=== PATIENT | male | born 1995 | race American Indian/Alaskan Native ===

== ENCOUNTER 2017-07-04 20:19 | Emergency (ER) | payer SELFPAY ==
[2017-07-04 21:08] LABS: Basophils % (Auto) 0.3 % (0.0-1.8); Hematocrit 45.8 % (35.5-45.6); Hemoglobin 15.2 gm/dl (11.8-15.2); Lymphocytes # (Auto) 0.8 K/mm3 (1.2-5.4); Lymphocytes % (Auto) 7.9 % (13.4-35.0); Mean Corpuscular HGB Conc 33 % (32-34); Mean Corpuscular Hemoglobin 32 pg (28-32); Mean Corpuscular Volume 95 fl (84-94); Monocytes # (Auto) 0.4 K/mm3 (0.0-0.8); Platelet Count 159 K/mm3 (140-440); Red Blood Count 4.83 M/mm3 (3.65-5.03); Red Cell Distribution Width 13.7 % (13.2-15.2)
[2017-07-04 21:30] LABS: Alanine Aminotransferase 16 units/L (7-56); Albumin 4.9 g/dL (3.9-5); BUN/Creatinine Ratio 14; Blood Urea Nitrogen 10 mg/dL (9-20); Calcium 9.6 mg/dL (8.4-10.2); Hemolysis Index 20
[2017-07-05] MEDS ORDERED: NACL 0.9% 1000 ML 1,000 ML IV ONE (04:18)
[2017-07-05] MEDS ORDERED: PEPCID IV ONE (04:18)
[2017-07-05] MEDS ORDERED: ZOFRAN IV ONE (04:18)
[2017-07-05] MEDS ORDERED: BENTYL IM ONE (04:18)
[2017-07-05] MEDS ORDERED: MORPHINE IV ONE (04:36)
--- NOTE | 2017-07-05 04:38 | Emergency Department Report ---
ED N/V/D HPI - General Chief complaint: Nausea/Vomiting/Diarrhea Stated complaint: NAUSEA/VOMITTING/DIARHEA Time Seen by Provider: 07/05/17 04:15 Source: patient Mode of arrival: Ambulatory Limitations: No Limitations - History of Present Illness Initial comments: 21-year-old male with a past medical history asthma and no surgical history presents to the hospital for nausea, vomiting, diarrhea and by mouth intolerance the past 3 days. Patient complains of generalized abdominal pain described as a "nervous feeling". Patient also has chest and throat pain described as burning with vomiting episodes. As per triage patient initially rated a 10/10 in intensity Patient denies fever, hematemesis, hematochezia, or melena. Also denies sick contacts, recent travel, antibiotic use. - Related Data Previous Rx's Medication Instructions Recorded Last Taken Type HYDROcodone/APAP 5-325 [[place] 1 each PO Q6HR PRN #20 tablet 07/04/14 Unknown Rx 5-325 mg TAB] Promethazine [Phenergan] 25 mg PO Q6H PRN #20 tablet 07/04/14 Unknown Rx Ranitidine HCl [Ranitidine] 150 mg PO Q12H #60 tablet 07/04/14 Unknown Rx HYDROcodone/APAP 10-325 [[place] 1 each PO Q6HR PRN #12 tablet 10/17/14 Unknown Rx 10/325] Promethazine [Phenergan] 25 mg PO Q6H PRN #12 tablet 10/17/14 Unknown Rx Ranitidine HCl [Ranitidine] 150 mg PO Q12H #60 tablet 10/17/14 Unknown Rx Loperamide [Imodium] 2 mg PO Q2HR PRN #15 capsule 07/05/17 Unknown Rx Omeprazole Magnesium [PriLOSEC Otc] 20 mg PO BID #60 tab 07/05/17 Unknown Rx Ondansetron [Zofran Odt] 4 mg PO Q8HR PRN #20 tab.rapdis 07/05/17 Unknown Rx traMADol [Ultram 50 MG tab] 50 mg PO Q6HR PRN #20 tablet 07/05/17 Unknown Rx Allergies Allergy/AdvReac Type Severity Reaction Status Date / Time No Known Allergies Allergy Verified 10/17/14 11:21 ED Review of Systems ROS: Stated complaint: NAUSEA/VOMITTING/DIARHEA Other details as noted in HPI Comment: All other systems reviewed and negative Other: Constitutional: No fevers chills. Patient does complain of sweating episodes after vomiting Eyes: No eye pain visual changes or discharge ENT: No ear pain or throat pain Neck: Denies pain Respiratory: Denies cough wheezing shortness of breath Cardiovascular: Denies chest pain, palpitations, syncope GI: As per HPI : Denies dysuria Musculoskeletal: Denies back pain, joint swelling Skin: Denies rash, lesions, erythema Neurologic: Denies headache, numbness, weakness Psychiatric: Denies suicidal ideation, hallucinations ED Past Medical Hx - Past Medical History Hx Asthma: Yes - Surgical History Past Surgical History?: No - Social History Smoking Status: Current Every Day Smoker Substance Use Type: None - Medications Home Medications: Home Medications Medication Instructions Recorded Confirmed Last Taken Type HYDROcodone/APAP 5-325 [[place] 1 each PO Q6HR PRN #20 tablet 07/04/14 Unknown Rx 5-325 mg TAB] Promethazine [Phenergan] 25 mg PO Q6H PRN #20 tablet 07/04/14 Unknown Rx Ranitidine HCl [Ranitidine] 150 mg PO Q12H #60 tablet 07/04/14 Unknown Rx HYDROcodone/APAP 10-325 [[place] 1 each PO Q6HR PRN #12 tablet 10/17/14 Unknown Rx 10/325] Promethazine [Phenergan] 25 mg PO Q6H PRN #12 tablet 10/17/14 Unknown Rx Ranitidine HCl [Ranitidine] 150 mg PO Q12H #60 tablet 10/17/14 Unknown Rx Loperamide [Imodium] 2 mg PO Q2HR PRN #15 capsule 07/05/17 Unknown Rx Omeprazole Magnesium [PriLOSEC Otc] 20 mg PO BID #60 tab 07/05/17 Unknown Rx Ondansetron [Zofran Odt] 4 mg PO Q8HR PRN #20 tab.rapdis 07/05/17 Unknown Rx traMADol [Ultram 50 MG tab] 50 mg PO Q6HR PRN #20 tablet 07/05/17 Unknown Rx ED Physical Exam - General Limitations: No Limitations - Other Other exam information: General: No limitations, patient is alert in no acute distress Head exam: Atraumatic, normocephalic Eyes exam: Normal appearance, nonicteric sclerae ENT: Moist mucous membrane, normal oropharynx Neck exam: Normal inspection, full range of motion, no meningismus nontender Respiratory exam: Clear to auscultation bilateral, no wheezes, rales, crackles Cardiovascular: Normal rate and rhythm Abdomen: Soft, nondistended, right upper quadrant, epigastric, left upper quadrant tenderness to palpation, with normal bowel sounds, no rebound, or guarding Extremity: Full range of motion normal inspection no deformity Back: Normal Inspection, full range of motion, no tenderness Neurologic: Alert, oriented x3, cranial nerves intact, no motor or sensory deficit Psychiatric: normal affect, normal mood Skin: Warm, dry, intact ED Course Vital Signs 07/04/17 07/05/17 07/05/17 20:53 04:17 04:20 Temperature 97.2 F L 98.3 F Pulse Rate 59 L 80 Respiratory 18 16 Rate Blood Pressure 129/69 Blood Pressure 136/68 [Right] O2 Sat by Pulse 100 100 97 Oximetry 07/05/17 07/05/17 07/05/17 04:30 04:45 04:58 Temperature Pulse Rate Respiratory 16 Rate Blood Pressure 117/54 117/54 Blood Pressure [Right] O2 Sat by Pulse 100 100 Oximetry ED Medical Decision Making - Lab Data Result diagrams: 07/04/17 20:58 07/04/17 20:58 Lab Results 07/04/17 07/04/17 Range/Units 20:58 20:58 WBC 9.9 (4.5-11.0) K/mm3 RBC 4.83 (3.65-5.03) M/mm3 Hgb 15.2 (11.8-15.2) gm/dl Hct 45.8 H (35.5-45.6) % MCV 95 H (84-94) fl MCH 32 (28-32) pg MCHC 33 (32-34) % RDW 13.7 (13.2-15.2) % Plt Count 159 (140-440) K/mm3 Lymph % (Auto) 7.9 L (13.4-35.0) % [place] % (Auto) 4.0 (0.0-7.3) % Eos % (Auto) 0.0 (0.0-4.3) % Baso % (Auto) 0.3 (0.0-1.8) % Lymph # 0.8 L (1.2-5.4) K/mm3 [place] # 0.4 (0.0-0.8) K/mm3 Eos # 0.0 (0.0-0.4) K/mm3 Baso # 0.0 (0.0-0.1) K/mm3 Seg Neutrophils % 87.8 H (40.0-70.0) % Seg Neutrophils # 8.7 H (1.8-7.7) K/mm3 Sodium 138 (137-145) mmol/L Potassium 3.7 (3.6-5.0) mmol/L Chloride 102.6 (98-107) mmol/L Carbon Dioxide 21 L (22-30) mmol/L Anion Gap 18 mmol/L BUN 10 (9-20) mg/dL Creatinine 0.7 L (0.8-1.5) mg/dL Estimated GFR > 60 ml/min BUN/Creatinine Ratio 14 % Glucose 145 H (75-100) mg/dL Calcium 9.6 (8.4-10.2) mg/dL Total Bilirubin 0.80 (0.1-1.2) mg/dL AST 18 (5-40) units/L ALT 16 (7-56) units/L Alkaline Phosphatase 53 (35-129) units/L Total Protein 7.2 (6.3-8.2) g/dL Albumin 4.9 (3.9-5) g/dL Albumin/Globulin Ratio 2.1 % - Medical Decision Making Patient received normal saline, morphine, Bentyl, and Zofran with improvement in symptoms. Will be treated symptomatically for gastroenteritis - Differential Diagnosis gastroenteritis, pancreatitis, hepatitis, appendicitis, cholecystitis Critical Care Time: No Critical care attestation.: If time is entered above; I have spent that time in minutes in the direct care of this critically ill patient, excluding procedure time. ED Disposition Clinical Impression: Gastroenteritis Disposition: DC-01 TO HOME OR SELFCARE Is pt being admited?: No Does the pt Need Aspirin: No Condition: Stable Instructions: Gastroenteritis (ED) Additional Instructions: Take the medication as prescribed. Follow-up with the doctor or clinic provided. Return if symptoms worsen as indicated by your discharge instructions. Prescriptions: Loperamide [Imodium] 2 mg PO Q2HR PRN #15 capsule PRN Reason: Diarrhea Omeprazole Magnesium [PriLOSEC Otc] 20 mg PO BID #60 tab Ondansetron [Zofran Odt] 4 mg PO Q8HR PRN #20 tab.rapdis PRN Reason: Nausea And Vomiting traMADol [Ultram 50 MG tab] 50 mg PO Q6HR PRN #20 tablet PRN Reason: Pain Referrals: PRIMARY CARE, [Primary Care Provider] - 3-5 Days [facility] [Provider Group] - 3-5 Days KARON CASTELLANOS MD [Staff Physician] - 3-5 Days Time of Disposition: 06:30
[2017-07-05 06:09] LABS: Bilirubin,Urine NEG (Negative); Blood,Urine NEG (Negative); Color,Urine Yellow (Yellow); Mucus,Urine 3+ /HPF; Nitrite,Urine NEG (Negative); Urobilinogen,Urine < 2.0 mg/dL (<2.0)
[2017-07-05 06:23] VITALS: BP 105/46
== END 2017-07-05 06:32 | disposition home or self-care (01) ==
LOC: ED 20:19
DX: K52.9 Noninfective gastroenteritis and colitis, unspecified (principal); F17.200 Nicotine dependence, unspecified, uncomplicated; J45.909 Unspecified asthma, uncomplicated
CPT/HCPCS: 36415; 80053; 81001; 85025; 96361; 96372; 96374; 96375; 99283; J0500; J2270; J2405; J7030

== ENCOUNTER 2020-07-13 14:15 | Emergency (ER) | payer SELFPAY ==
[2020-07-13 14:27] VITALS: BP 136/75
[2020-07-13] MEDS ORDERED: MORPHINE 4 MG/1 ML INJ IV ONE (15:04)
[2020-07-13] MEDS ORDERED: ONDANSETRON 4 MG/2 ML INJ IV ONE (15:04)
[2020-07-13] MEDS ORDERED: SODIUM CHLORIDE 0.9% 1000 ML 1,000 ML IV ONE (15:05)
[2020-07-13 15:16] LABS: Alanine Aminotransferase 17 units/L (7-56); Albumin 4.7 g/dL (3.9-5); BUN/Creatinine Ratio 13; Blood Urea Nitrogen 12 mg/dL (9-20); Calcium 9.4 mg/dL (8.4-10.2); Hemolysis Index 10
[2020-07-13] MEDS ORDERED: diphenhydrAMINE 50 MG/ML VIAL IV ONE (15:16)
[2020-07-13] MEDS ORDERED: METOCLOPRAMIDE 10 MG/2 ML INJ IV ONE (15:16)
[2020-07-13 15:17] LABS: Basophils % (Auto) 0.4 % (0.0-1.8); Eosinophils % (Auto) 0.1 % (0.0-4.3); Hematocrit 45.7 % (35.5-45.6); Hemoglobin 15.1 gm/dl (11.8-15.2); Lymphocytes # (Auto) 1.2 K/mm3 (1.2-5.4); Lymphocytes % (Auto) 16.1 % (13.4-35.0); Mean Corpuscular HGB Conc 33 % (32-34); Mean Corpuscular Volume 96 fl (84-94); Monocytes # (Auto) 0.3 K/mm3 (0.0-0.8); Platelet Count 181 K/mm3 (140-440); Red Blood Count 4.73 M/mm3 (3.65-5.03); Red Cell Distribution Width 13.5 % (13.2-15.2)
--- NOTE | 2020-07-13 16:13 | Cat Scan Report ---
CT ABDOMEN AND PELVIS WITH CONTRAST HISTORY: MAIN. Acute right lower quadrant abdominal pain COMPARISON: CT abdomen/pelvis from 07/04/2014 TECHNIQUE: CT images of the abdomen and pelvis were obtained following administration of intravenous contrast. All CT scans at this location are performed using CT dose reduction for ALARA by means of automated exposure control. CONTRAST: 100 ml of intravenous contrast administered. FINDINGS: Lungs/bones: Lung bases are clear. No acute osseous abnormality identified. Abdomen/pelvis: The liver, gallbladder, spleen, pancreas, adrenals, kidneys, and proximal GI tract a ppear unremarkable. The urinary bladder and prostate are normal with no significant pelvic free fluid. No acute colonic a bnormality identified. There is questionable wall thickening circumferentially along the terminal ileum. The appendix is not well seen. The exam is also difficult because of generalized lack of intra-abdominal fat; however, t here appear to be some lymph nodes in the deep pelvic mesentery and prominent blood vessels. No bowel obstruction or abscess formation. IMPRESSION: 1. Nonspecific inflammatory-appearing changes in the distal small bowel. Crohn's would be in the diff erential. The appendix is not visualized on this exam. Signer Name: Jack Gallardo MD Signed: 07/13/2020 4:08 PM Workstation Name: [id number]
--- NOTE | 2020-07-13 16:47 | Emergency Department Report ---
ED General Adult HPI - General Chief complaint: Syncope Stated complaint: PASS OUT Time Seen by Provider: 07/13/20 14:33 Source: patient Mode of arrival: Stretcher Limitations: No Limitations - History of Present Illness Initial comments: Patient presents to the emergency department from labor and delivery for syncopal episode. Patient was with a significant other who was having a baby when he passed out. Patient states he has a history of passing out. Patient denies chest pain but does complain of nausea and vomiting with abdominal pain. He describes the pain is sharp in nature and denies any radiation. -: Sudden Location: abdomen Radiation: non-radiation Severity scale (0 -10): 8 Quality: sharp Consistency: constant Improves with: none Worsens with: none Associated Symptoms: denies other symptoms Treatments Prior to Arrival: none - Related Data Previous Rx's Medication Instructions Recorded Last Taken Type HYDROcodone/APAP 5-325 [[place] 1 each PO Q6HR PRN #20 tablet 07/04/14 Unknown Rx 5-325 mg TAB] Promethazine [Phenergan] 25 mg PO Q6H PRN #20 tablet 07/04/14 Unknown Rx raNITIdine HCL [Ranitidine] 150 mg PO Q12H #60 tablet 07/04/14 Unknown Rx HYDROcodone/APAP 10-325 [[place] 1 each PO Q6HR PRN #12 tablet 10/17/14 Unknown Rx 10/325] Promethazine [Phenergan] 25 mg PO Q6H PRN #12 tablet 10/17/14 Unknown Rx raNITIdine HCL [Ranitidine] 150 mg PO Q12H #60 tablet 10/17/14 Unknown Rx Loperamide [Imodium] 2 mg PO Q2HR PRN #15 capsule 07/05/17 Unknown Rx Omeprazole Magnesium [PriLOSEC Otc] 20 mg PO BID #60 tab 07/05/17 Unknown Rx Ondansetron [Zofran Odt] 4 mg PO Q8HR PRN #20 tab.rapdis 07/05/17 Unknown Rx traMADoL [Ultram 50 MG tab] 50 mg PO Q6HR PRN #20 tablet 07/05/17 Unknown Rx Dicyclomine [Bentyl] 10 mg PO QID PRN #20 capsule 07/13/20 Unknown Rx Promethazine [Phenergan TAB] 25 mg PO Q6HR PRN #20 tab 07/13/20 Unknown Rx Allergies Allergy/AdvReac Type Severity Reaction Status Date / Time ondansetron [From Zofran] AdvReac Vomiting Verified 07/13/20 15:16 ED Review of Systems ROS: Stated complaint: PASS OUT Other details as noted in HPI Constitutional: denies: chills, fever Eyes: denies: eye pain, eye discharge, vision change ENT: denies: ear pain, throat pain Respiratory: denies: cough, shortness of breath, wheezing Cardiovascular: denies: chest pain, palpitations Endocrine: no symptoms reported Gastrointestinal: abdominal pain, nausea, vomiting. denies: diarrhea Genitourinary: denies: urgency, dysuria Musculoskeletal: denies: back pain, joint swelling, arthralgia Skin: denies: rash, lesions Neurological: denies: headache, weakness, paresthesias Psychiatric: denies: anxiety, depression Hematological/Lymphatic: denies: easy bleeding, easy bruising ED Past Medical Hx - Past Medical History Previous Medical History?: Yes Hx Asthma: Yes - Surgical History Past Surgical History?: No - Social History Smoking Status: Never Smoker Substance Use Type: None - Medications Home Medications: Home Medications Medication Instructions Recorded Confirmed Last Taken Type HYDROcodone/APAP 5-325 [[place] 1 each PO Q6HR PRN #20 tablet 07/04/14 Unknown Rx 5-325 mg TAB] Promethazine [Phenergan] 25 mg PO Q6H PRN #20 tablet 07/04/14 Unknown Rx raNITIdine HCL [Ranitidine] 150 mg PO Q12H #60 tablet 07/04/14 Unknown Rx HYDROcodone/APAP 10-325 [[place] 1 each PO Q6HR PRN #12 tablet 10/17/14 Unknown Rx 10/325] Promethazine [Phenergan] 25 mg PO Q6H PRN #12 tablet 10/17/14 Unknown Rx raNITIdine HCL [Ranitidine] 150 mg PO Q12H #60 tablet 10/17/14 Unknown Rx Loperamide [Imodium] 2 mg PO Q2HR PRN #15 capsule 07/05/17 Unknown Rx Omeprazole Magnesium [PriLOSEC Otc] 20 mg PO BID #60 tab 07/05/17 Unknown Rx Ondansetron [Zofran Odt] 4 mg PO Q8HR PRN #20 tab.rapdis 07/05/17 Unknown Rx traMADoL [Ultram 50 MG tab] 50 mg PO Q6HR PRN #20 tablet 07/05/17 Unknown Rx Dicyclomine [Bentyl] 10 mg PO QID PRN #20 capsule 07/13/20 Unknown Rx Promethazine [Phenergan TAB] 25 mg PO Q6HR PRN #20 tab 07/13/20 Unknown Rx ED Physical Exam - General Limitations: No Limitations General appearance: alert, in no apparent distress - Head Head exam: Present: atraumatic, normocephalic - Eye Eye exam: Present: normal appearance - ENT ENT exam: Present: mucous membranes moist - Neck Neck exam: Present: normal inspection - Respiratory Respiratory exam: Present: normal lung sounds bilaterally. Absent: respiratory distress - Cardiovascular Cardiovascular Exam: Present: regular rate, normal rhythm. Absent: systolic murmur, diastolic murmur, rubs, gallop - GI/Abdominal GI/Abdominal exam: Present: soft, tenderness (Right lower quadrant initially; repeat abdominal examination at 3:30 PM the patient has no tenderness to palpation of the right lower quadrant), normal bowel sounds. Absent: distended - Rectal Rectal exam: Present: deferred - Extremities Exam Extremities exam: Present: normal inspection - Back Exam Back exam: Present: normal inspection - Neurological Exam Neurological exam: Present: alert, oriented X3, CN II-XII intact. Absent: motor sensory deficit - Psychiatric Psychiatric exam: Present: normal affect, normal mood - Skin Skin exam: Present: warm, dry, intact, normal color. Absent: rash ED Course Vital Signs 07/13/20 14:26 Temperature 97.6 F Pulse Rate 69 Respiratory 16 Rate Blood Pressure 136/75 Blood Pressure 136/75 [Right] O2 Sat by Pulse 100 Oximetry ED Medical Decision Making - Lab Data Result diagrams: 07/13/20 14:36 07/13/20 14:36 Lab Results 07/13/20 07/13/20 07/13/20 Range/Units 14:20 14:36 14:36 WBC 7.6 (4.5-11.0) K/mm3 RBC 4.73 (3.65-5.03) M/mm3 Hgb 15.1 (11.8-15.2) gm/dl Hct 45.7 H (35.5-45.6) % MCV 96 H (84-94) fl MCH 32 (28-32) pg MCHC 33 (32-34) % RDW 13.5 (13.2-15.2) % Plt Count 181 (140-440) K/mm3 Lymph % (Auto) 16.1 (13.4-35.0) % [place] % (Auto) 4.0 (0.0-7.3) % Eos % (Auto) 0.1 (0.0-4.3) % Baso % (Auto) 0.4 (0.0-1.8) % Lymph # (Auto) 1.2 (1.2-5.4) K/mm3 [place] # (Auto) 0.3 (0.0-0.8) K/mm3 Eos # (Auto) 0.0 (0.0-0.4) K/mm3 Baso # (Auto) 0.0 (0.0-0.1) K/mm3 Seg Neutrophils % 79.4 H (40.0-70.0) % Seg Neutrophils # 6.0 (1.8-7.7) K/mm3 Sodium 138 (137-145) mmol/L Potassium 3.5 L (3.6-5.0) mmol/L Chloride 100.9 (98-107) mmol/L Carbon Dioxide 25 (22-30) mmol/L Anion Gap 16 mmol/L BUN 12 (9-20) mg/dL Creatinine 0.9 (0.8-1.3) mg/dL Estimated GFR > 60 ml/min BUN/Creatinine Ratio 13 % Glucose 153 H (75-100) mg/dL POC Glucose 144 H (70-105) mg/dL Calcium 9.4 (8.4-10.2) mg/dL Total Bilirubin 0.60 (0.1-1.2) mg/dL AST 17 (5-40) units/L ALT 17 (7-56) units/L Alkaline Phosphatase 49 (35-129) units/L Total Protein 6.8 (6.3-8.2) g/dL Albumin 4.7 (3.9-5) g/dL Albumin/Globulin Ratio 2.2 % Lipase (13-60) units/L 07/13/20 Range/Units 15:07 WBC (4.5-11.0) K/mm3 RBC (3.65-5.03) M/mm3 Hgb (11.8-15.2) gm/dl Hct (35.5-45.6) % MCV (84-94) fl MCH (28-32) pg MCHC (32-34) % RDW (13.2-15.2) % Plt Count (140-440) K/mm3 Lymph % (Auto) (13.4-35.0) % [place] % (Auto) (0.0-7.3) % Eos % (Auto) (0.0-4.3) % Baso % (Auto) (0.0-1.8) % Lymph # (Auto) (1.2-5.4) K/mm3 [place] # (Auto) (0.0-0.8) K/mm3 Eos # (Auto) (0.0-0.4) K/mm3 Baso # (Auto) (0.0-0.1) K/mm3 Seg Neutrophils % (40.0-70.0) % Seg Neutrophils # (1.8-7.7) K/mm3 Sodium (137-145) mmol/L Potassium (3.6-5.0) mmol/L Chloride (98-107) mmol/L Carbon Dioxide (22-30) mmol/L Anion Gap mmol/L BUN (9-20) mg/dL Creatinine (0.8-1.3) mg/dL Estimated GFR ml/min BUN/Creatinine Ratio % Glucose (75-100) mg/dL POC Glucose (70-105) mg/dL Calcium (8.4-10.2) mg/dL Total Bilirubin (0.1-1.2) mg/dL AST (5-40) units/L ALT (7-56) units/L Alkaline Phosphatase (35-129) units/L Total Protein (6.3-8.2) g/dL Albumin (3.9-5) g/dL Albumin/Globulin Ratio % Lipase 9 L (13-60) units/L - EKG Data -: EKG Interpreted by Me EKG shows normal: sinus rhythm Rate: normal - Radiology Data Radiology results: report reviewed - Medical Decision Making Patient improved with IV fluids and IV antiemetics Results discussed with patient Critical care attestation.: If time is entered above; I have spent that time in minutes in the direct care of this critically ill patient, excluding procedure time. ED Disposition Clinical Impression: Vasovagal attack, Nausea & vomiting, Abdominal pain Disposition: DC- TO HOME OR SELFCARE Is pt being admited?: No Does the pt Need Aspirin: No Condition: Stable Instructions: Syncope (ED), Nausea and Vomiting, Adult, Nausea, Adult, Syncope, Abdominal Pain, Adult Additional Instructions: Return if worse Referrals: PRIMARY CARE, [Primary Care Provider] - 3-5 Days SUNDAR REED MD [Staff Physician] - 3-5 Days Time of Disposition: 18:02
[2020-07-13 18:12] LABS: Bilirubin,Urine NEG (Negative); Blood,Urine NEG (Negative); Color,Urine Yellow (Yellow); Protein,Urine <15 mg/dL mg/dL (Negative)
== END 2020-07-13 19:20 | disposition home or self-care (01) ==
LOC: ED 14:15
DX: R55 Syncope and collapse (principal); R11.2 Nausea with vomiting, unspecified; R10.9 Unspecified abdominal pain; J45.909 Unspecified asthma, uncomplicated; Z79.899 Other long term (current) drug therapy; Z88.8 Allergy status to other drugs, medicaments and biological substances
CPT/HCPCS: 36415; 74177; 80053; 81001; 82962; 83690; 85025; 93005; 96361; 96374; 96375; 99284; J1200; J2270; J2765; J7030; Q9967

== ENCOUNTER 2020-07-14 22:02 | Emergency (ER) | payer SELFPAY ==
[2020-07-14] MEDS ORDERED: SODIUM CHLORIDE 0.9% 1000 ML 1,000 ML IV ONE (22:34)
[2020-07-14] MEDS ORDERED: DICYCLOMINE 20 MG/2 ML INJ IM ONE (22:34)
[2020-07-14] MEDS ORDERED: METOCLOPRAMIDE 10 MG/2 ML INJ IV ONE (22:34)
[2020-07-14] MEDS ORDERED: FAMOTIDINE 20 MG/2 ML INJ IV ONE (22:34)
--- NOTE | 2020-07-14 22:40 | Event Note ---
ED Screening Note Date of service: 07/14/20 Time: 22:36 ED Screening Note: 24-year-old male patient with history of peptic ulcer disease presents to the emergency department with complaints of persistent nausea, vomiting, diarrhea, diffuse abdominal pain, and generalized weakness since yesterday. His symptoms began after experiencing a syncopal episode yesterday. At onset, patient was evaluated in the emergency department. Labs and imaging yesterday were unremarkable. He was discharged home to continue symptomatic management. Today, patient has vomited approximately 30 times. States he began to notice blood after the first several episodes. Unsure whether his stools were dark. Patient is not anticoagulated. He is not currently under the care of a legal advisor. States he is not currently taking any medications for gastric protection. Denies fever, chills, chest pain, shortness of breath, seizure, coffee-ground emesis, urinary symptoms. Denies other complaints at this time. This initial assessment/diagnostic orders/clinical plan/treatment(s) is/are subject to change based on patients health status, clinical progression and re- assessment by fellow clinical providers in the ED. Further treatment and workup at subsequent clinical providers discretion. Patient/guardian urged not to elope from the ED as their condition may be serious if not clinically assessed and managed.
[2020-07-14 23:00] LABS: Basophils % (Auto) 0.2 % (0.0-1.8); Hematocrit 45.6 % (35.5-45.6); Hemoglobin 15.4 gm/dl (11.8-15.2); Lymphocytes # (Auto) 0.9 K/mm3 (1.2-5.4); Lymphocytes % (Auto) 7.4 % (13.4-35.0); Mean Corpuscular HGB Conc 34 % (32-34); Mean Corpuscular Volume 95 fl (84-94); Monocytes # (Auto) 0.6 K/mm3 (0.0-0.8); Monocytes % (Auto) 5.6 % (0.0-7.3); Platelet Count 181 K/mm3 (140-440); Red Blood Count 4.82 M/mm3 (3.65-5.03); Red Cell Distribution Width 13.5 % (13.2-15.2)
[2020-07-14 23:22] LABS: Alanine Aminotransferase 21 units/L (7-56); Albumin 5.3 g/dL (3.9-5); BUN/Creatinine Ratio 14; Blood Urea Nitrogen 13 mg/dL (9-20); Calcium 10.3 mg/dL (8.4-10.2); Hemolysis Index 8
[2020-07-15] MEDS ORDERED: PANTOPRAZOLE 40 MG INJ IV ONE (02:21)
--- NOTE | 2020-07-15 02:25 | Emergency Department Report ---
HPI - General Chief Complaint: GI Bleed Time Seen by Provider: 07/15/20 02:07 - HPI HPI: This is a 24-year-old -[place] male who presents to the emergency department with a complaint of nausea and vomiting, as well as some abdominal discomfort, that has been going on since yesterday. The patient says that he has had copious vomiting and there have been instances in which he has seen some blood-tinged emesis. He has not taken anything for symptoms prior to presentation. The patient has a past medical history of asthma and there is something listed as a "tear in esophagus." The patient does not follow with any primary care physician or student career development specialist. No recent travel or sick contacts at home. The patient was seen here 2 days ago with some abdominal discomfort and what appears to be a vasovagal syncopal episode. He had a CT scan of the abdomen and pelvis done at that time that showed nonspecific inflammatory changes of the small bowel and Crohn's disease is a possibility. 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 - Surgical History Past Surgical History?: No - Social History Smoking Status: Never Smoker Substance Use Type: None - Medications Home Medications: Home Medications Medication Instructions Recorded Confirmed Last Taken Type HYDROcodone/APAP 5-325 [[place] 1 each PO Q6HR PRN #20 tablet 07/04/14 Unknown Rx 5-325 mg TAB] Promethazine [Phenergan] 25 mg PO Q6H PRN #20 tablet 07/04/14 Unknown Rx raNITIdine HCL [Ranitidine] 150 mg PO Q12H #60 tablet 07/04/14 Unknown Rx HYDROcodone/APAP 10-325 [[place] 1 each PO Q6HR PRN #12 tablet 10/17/14 Unknown Rx 10/325] Promethazine [Phenergan] 25 mg PO Q6H PRN #12 tablet 10/17/14 Unknown Rx raNITIdine HCL [Ranitidine] 150 mg PO Q12H #60 tablet 10/17/14 Unknown Rx Loperamide [Imodium] 2 mg PO Q2HR PRN #15 capsule 07/05/17 Unknown Rx Ondansetron [Zofran Odt] 4 mg PO Q8HR PRN #20 tab.rapdis 07/05/17 Unknown Rx traMADoL [Ultram 50 MG tab] 50 mg PO Q6HR PRN #20 tablet 07/05/17 Unknown Rx Dicyclomine [Bentyl] 10 mg PO QID PRN #20 capsule 07/15/20 Unknown Rx Omeprazole Magnesium [PriLOSEC Otc] 20 mg PO BID #40 tab 07/15/20 Unknown Rx Promethazine [Phenergan] 25 mg PO Q6HR PRN #14 tab 07/15/20 Unknown Rx ED Review of Systems ROS: Stated complaint: VOMITING BLOOD Other details as noted in HPI Comment: All other systems reviewed and negative Constitutional: denies: chills, fever Eyes: denies: eye pain, vision change ENT: denies: ear pain, throat pain Respiratory: denies: cough, wheezing Cardiovascular: denies: chest pain, palpitations Gastrointestinal: abdominal pain, nausea, vomiting, hematemesis Genitourinary: denies: dysuria, discharge Musculoskeletal: denies: back pain, arthralgia Skin: denies: rash, lesions Neurological: denies: headache, weakness Physical Exam - Physical Exam Vital Signs: Vital Signs 07/14/20 22:33 Temperature 98.2 F Pulse Rate 70 Respiratory 16 Rate Blood Pressure 120/73 O2 Sat by Pulse 97 Oximetry Physical Exam: GENERAL: The patient is well-developed well-nourished. HENT: Normocephalic. Atraumatic. Patient has moist mucous membranes. EYES: Extraocular motions are intact. NECK: Supple. Trachea is midline. CHEST/LUNGS: Clear to auscultation. There is no respiratory distress noted. HEART/CARDIOVASCULAR: Regular. There is no tachycardia. There is no murmur. ABDOMEN: Abdomen is soft. Generalized abdominal tenderness to palpation. No guarding. Patient has normal bowel sounds. There is no abdominal distention. SKIN: Skin is warm and dry. NEURO: The patient is awake, alert, and oriented. The patient is cooperative. Normal speech. MUSCULOSKELETAL: There is no tenderness or deformity. There is no limitation range of motion. ED Course Vital Signs 07/14/20 22:33 Temperature 98.2 F Pulse Rate 70 Respiratory 16 Rate Blood Pressure 120/73 O2 Sat by Pulse 97 Oximetry ED Medical Decision Making - Lab Data Result diagrams: 07/14/20 22:44 07/14/20 22:44 Lab Results 07/14/20 07/14/20 07/14/20 Range/Units 22:44 22:44 Unknown WBC 11.6 H (4.5-11.0) K/mm3 RBC 4.82 (3.65-5.03) M/mm3 Hgb 15.4 H (11.8-15.2) gm/dl Hct 45.6 (35.5-45.6) % MCV 95 H (84-94) fl MCH 32 (28-32) pg MCHC 34 (32-34) % RDW 13.5 (13.2-15.2) % Plt Count 181 (140-440) K/mm3 Lymph % (Auto) 7.4 L (13.4-35.0) % [place] % (Auto) 5.6 (0.0-7.3) % Eos % (Auto) 0.0 (0.0-4.3) % Baso % (Auto) 0.2 (0.0-1.8) % Lymph # (Auto) 0.9 L (1.2-5.4) K/mm3 [place] # (Auto) 0.6 (0.0-0.8) K/mm3 Eos # (Auto) 0.0 (0.0-0.4) K/mm3 Baso # (Auto) 0.0 (0.0-0.1) K/mm3 Seg Neutrophils % 86.8 H (40.0-70.0) % Seg Neutrophils # 10.1 H (1.8-7.7) K/mm3 Sodium 138 (137-145) mmol/L Potassium 3.9 (3.6-5.0) mmol/L Chloride 97.4 L (98-107) mmol/L Carbon Dioxide 30 (22-30) mmol/L Anion Gap 15 mmol/L BUN 13 (9-20) mg/dL Creatinine 0.9 (0.8-1.3) mg/dL Estimated GFR > 60 ml/min BUN/Creatinine Ratio 14 % Glucose 108 H (75-100) mg/dL Calcium 10.3 H (8.4-10.2) mg/dL Magnesium 1.70 (1.7-2.3) mg/dL Total Bilirubin 0.70 (0.1-1.2) mg/dL AST 22 (5-40) units/L ALT 21 (7-56) units/L Alkaline Phosphatase 51 (35-129) units/L Total Protein 7.2 (6.3-8.2) g/dL Albumin 5.3 H (3.9-5) g/dL Albumin/Globulin Ratio 2.8 % Lipase 10 L (13-60) units/L Urine Color Yellow (Yellow) Urine Turbidity Clear (Clear) Urine pH 6.0 (5.0-7.0) Ur Specific [place] 1.023 (1.003-1.030) Urine Protein 30 mg/dl (Negative) mg/dL Urine Glucose (UA) Neg (Negative) mg/dL Urine Ketones 80 (Negative) mg/dL Urine Blood Sm (Negative) Urine Nitrite Neg (Negative) Urine Bilirubin Neg (Negative) Urine Urobilinogen 2.0 (<2.0) mg/dL Ur Leukocyte Esterase Neg (Negative) Urine WBC (Auto) 6.0 (0.0-6.0) /HPF Urine RBC (Auto) 20.0 (0.0-6.0) /HPF U Epithel Cells (Auto) < 1.0 (0-13.0) /HPF Urine Mucus 3+ /HPF U Marijuana (THC) Screen Drugs of Abuse Note 07/14/20 Range/Units Unknown WBC (4.5-11.0) K/mm3 RBC (3.65-5.03) M/mm3 Hgb (11.8-15.2) gm/dl Hct (35.5-45.6) % MCV (84-94) fl MCH (28-32) pg MCHC (32-34) % RDW (13.2-15.2) % Plt Count (140-440) K/mm3 Lymph % (Auto) (13.4-35.0) % [place] % (Auto) (0.0-7.3) % Eos % (Auto) (0.0-4.3) % Baso % (Auto) (0.0-1.8) % Lymph # (Auto) (1.2-5.4) K/mm3 [place] # (Auto) (0.0-0.8) K/mm3 Eos # (Auto) (0.0-0.4) K/mm3 Baso # (Auto) (0.0-0.1) K/mm3 Seg Neutrophils % (40.0-70.0) % Seg Neutrophils # (1.8-7.7) K/mm3 Sodium (137-145) mmol/L Potassium (3.6-5.0) mmol/L Chloride (98-107) mmol/L Carbon Dioxide (22-30) mmol/L Anion Gap mmol/L BUN (9-20) mg/dL Creatinine (0.8-1.3) mg/dL Estimated GFR ml/min BUN/Creatinine Ratio % Glucose (75-100) mg/dL Calcium (8.4-10.2) mg/dL Magnesium (1.7-2.3) mg/dL Total Bilirubin (0.1-1.2) mg/dL AST (5-40) units/L ALT (7-56) units/L Alkaline Phosphatase (35-129) units/L Total Protein (6.3-8.2) g/dL Albumin (3.9-5) g/dL Albumin/Globulin Ratio % Lipase (13-60) units/L Urine Color (Yellow) Urine Turbidity (Clear) Urine pH (5.0-7.0) Ur Specific [place] (1.003-1.030) Urine Protein (Negative) mg/dL Urine Glucose (UA) (Negative) mg/dL Urine Ketones (Negative) mg/dL Urine Blood (Negative) Urine Nitrite (Negative) Urine Bilirubin (Negative) Urine Urobilinogen (<2.0) mg/dL Ur Leukocyte Esterase (Negative) Urine WBC (Auto) (0.0-6.0) /HPF Urine RBC (Auto) (0.0-6.0) /HPF U Epithel Cells (Auto) (0-13.0) /HPF Urine Mucus /HPF U Marijuana (THC) Screen Presumptive positive Drugs of Abuse Note Disclamer - EKG Data -: EKG Interpreted by Me EKG shows normal: sinus rhythm (PVCs), axis, intervals, QRS complexes, ST-T waves Rate: normal - EKG Data When compared to previous EKG there are: no significant change Interpretation: unchanged when compared t (07/13/20) - Radiology Data Radiology results: image reviewed interpreted by me: Abdominal x-ray shows nonspecific nonobstructive bowel gas. No free air. Chest x-ray does not show any acute process. There are no pleural effusions, obvious pneumonia and there is no pneumothorax. No significant cardiomegaly. - Medical Decision Making This patient presents with a complaint of a 2-day history of nausea with vomiting, generalized abdominal discomfort. Patient also says that there has been some blood-tinged emesis at times. An IV was placed and the patient was given IV fluid resuscitation, antiemetics, and pain medication. Patient's labs have been mostly unremarkable including CBC, metabolic panel, lipase, urinalysis and UDS. However, the urinalysis does have 80 ketones in the urine showing dehydration, and urine drug screen is positive for marijuana. The patient had an acute abdominal series that did not show any signs of obstruction, free air, or any other acute process. The patient had a CT scan of the abdomen and pelvis with IV contrast, 2 days ago, that showed some nonspecific inflammatory changes in the small bowel. He has been reevaluated multiple times over multiple hours and there has been no further vomiting. The patient was able to pass an oral challenge. He will be discharged home to follow-up with primary care and has been given a referral for gastroenterology. He has been given a prescription for antiemetics, a PPI, and pain medication. He will return to the emergency department with any worsening of his symptoms or with any acute distress. Critical Care Time: No Critical care attestation.: If time is entered above; I have spent that time in minutes in the direct care of this critically ill patient, excluding procedure time. ED Disposition Clinical Impression: Dehydration Nausea & vomiting Qualifiers: Vomiting type: unspecified Vomiting Intractability: non-intractable Qualified Code(s): R11.2 - Nausea with vomiting, unspecified Abdominal pain Qualifiers: Abdominal location: generalized Qualified Code(s): R10.84 - Generalized abdominal pain Disposition: DC-01 TO HOME OR SELFCARE Is pt being admited?: No Condition: Stable Instructions: Abdominal Pain, Adult, Rehydration, Adult, Nausea and Vomiting, Adult Additional Instructions: Please increase your oral rehydration. Please follow-up with a primary care physician. I have given you a referral for a local primary care physician and a local primary care clinic. I have given you a referral for [facility] to follow-up regarding your recurrent abdominal pains, nausea and vomiting. Return to the emergency department with any worsening of your symptoms, new or concerning symptoms not addressed during this current emergency department visit, or with any acute distress. Prescriptions: Dicyclomine [Bentyl] 10 mg PO QID PRN #20 capsule PRN Reason: pain Promethazine [Phenergan] 25 mg PO Q6HR PRN #14 tab PRN Reason: Nausea Omeprazole Magnesium [PriLOSEC Otc] 20 mg PO BID #40 tab Referrals: PRIMARY CAREMD [Primary Care Provider] - 2-3 Days [facility] [Provider Group] - 2-3 Days KATE RAY MD [Staff Physician] - 2-[address] [facility] [Provider Group] - 2-3 Days Forms: Accompanied Note Time of Disposition: 05:28
[2020-07-15] MEDS ORDERED: DICYCLOMINE 20 MG/2 ML INJ IM ONE (02:33)
[2020-07-15] MEDS ORDERED: METOCLOPRAMIDE 10 MG/2 ML INJ IV ONE (02:34)
[2020-07-15] MEDS ORDERED: SODIUM CHLORIDE 0.9% 1000 ML 1,000 ML IV ONE ×2 (02:34→03:55)
[2020-07-15] MEDS ORDERED: diphenhydrAMINE 50 MG/ML VIAL IV ONE (03:24)
--- NOTE | 2020-07-15 03:55 | XRay Report ---
ABDOMEN 3 VIEW(S) INDICATION / CLINICAL INFORMATION: Abd pain. COMPARISON: None available. FINDINGS: TUBES / LINES: None. BOWEL GAS PATTERN: No significant abnormality. FREE AIR / EXTRALUMINAL GAS: None seen. ADDITIONAL FINDINGS: No significant additional findings. LUNGS: Visualized lungs show no significant abnormality. IMPRESSION: 1. No significant abnormality. Signer Name: Abelino Hernandez MD Signed: 07/15/2020 3:50 AM Workstation Name: [id number]
[2020-07-15 05:21] LABS: Bilirubin,Urine NEG (Negative); Blood,Urine SM (Negative); Color,Urine Yellow (Yellow); Mucus,Urine 3+ /HPF
[2020-07-15 05:22] LABS: Amphetamine Screen,Urine PRESUMPTIVE NEGATIVE; Benzodiazepines Screen,Urine PRESUMPTIVE NEGATIVE; Cannabinoid Screen,Urine PRESUMPTIVE POSITIVE; Cocaine Screen,Urine PRESUMPTIVE NEGATIVE; Methadone Screen,Urine PRESUMPTIVE NEGATIVE; Opiate Screen,Urine PRESUMPTIVE NEGATIVE
[2020-07-15 06:43] VITALS: BP 119/74
== END 2020-07-15 06:05 | disposition home or self-care (01) ==
LOC: ED 22:02
DX: E86.0 Dehydration (principal); R11.2 Nausea with vomiting, unspecified; R10.9 Unspecified abdominal pain; J45.909 Unspecified asthma, uncomplicated; Z79.899 Other long term (current) drug therapy; Z88.8 Allergy status to other drugs, medicaments and biological substances
CPT/HCPCS: 36415; 74022; 80053; 80307; 81001; 83690; 83735; 85025; 93005; 96361; 96372; 96374; 96375; 99284; C9113; J0500; J1200; J2765; J7030